=== PATIENT | male | born 1980 | race Caucasian/White ===

== ENCOUNTER 2019-03-08 10:43 | Outpatient (CLI) | payer BC ==
--- NOTE | 2019-03-08 11:22 | RAD ---
LUMBAR SPINE TWO VIEWS: History: Back pain. FINDINGS: Slight curvature to the left in the AP projection which may be positional. In the lateral view, the l umbar vertebrae maintain normal height and alignment. Mild loss of disc space at L4-5 and L5-S1. Mild degenerative osteophytes. No spondylolisthesis or spondylolysis identified. IMPRESSION: Mild degenerative change. POS: OFF
== END 2019-03-08 10:44 | disposition home or self-care (01) ==
LOC: SCSRAD 10:43
PROVIDERS: ATTEND Chiropractor
DX: M54.31 Sciatica, right side (principal); M47.816 Spondylosis without myelopathy or radiculopathy, lumbar region
CPT/HCPCS: 72100

== ENCOUNTER 2019-04-26 12:10 | Outpatient (CLI) | payer BC ==
--- NOTE | 2019-04-26 13:05 | MRI ---
MR the lumbar spine without contrast INDICATION: Right sciatica pain and low back pain since November COMPARISON: Lumbar spinal radiograph dated March 08, 2019 TECHNIQUE: Multiplanar multisequence MR images were obtained of lumbar spine without IV contrast. FINDINGS: Bone marrow: Bone marrow signal intensity appears within normal limits. Distal spinal cord and conus: Normal. The conus seen to terminate at L1. Visualized retroperitoneum and paraspinal soft tissues: Normal. Vertebral levels: L5-S1: There is mild facet joint degenerative change bilaterally. There is a mild broad-based bulge b ut no appreciable central canal or neural foraminal narrowing.. L4-5: There is a broad-based disc bulge with a superimposed right paracentral disc protrusion causing severe narrowing of the right lateral recess and impingement of the traversing right L5 nerve root. The protrusion also causes mild central canal narrowing. There is mild facet joint degenerative change at this level. L3-4: There is loss of the normal disc signal and height. There is a small central to right paracentr al disc protrusion causing mild ventral effacement of the subarachnoid space without prominent central canal narrowing. No neural foraminal narrowing is demonstrated. L2-3: No appreciable central canal or neuroforaminal narrowing. L1-L2: No appreciable central canal or neuroforaminal narrowing. T12-L1: No appreciable central canal or neuroforaminal narrowing. IMPRESSION: 1. Large right paracentral disc protrusion at L4-5 causing severe narrowing of the right lateral rece ss with impingement of the traversing right L5 nerve root. There is also mild central canal narrowing at this level due to the large right paracentral disc protrusion. 2. Small central to right paracentral disc protrusion at L3-4 causing mild ventral effacement of the thecal sac without prominent central canal narrowing. 3. 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
== END 2019-04-26 12:11 | disposition home or self-care (01) ==
LOC: SCSMRI 12:10
DX: M51.16 Intervertebral disc disorders with radiculopathy, lumbar region (principal); M48.061 Spinal stenosis, lumbar region without neurogenic claudication; M47.816 Spondylosis without myelopathy or radiculopathy, lumbar region
CPT/HCPCS: 72148